=== PATIENT | male | born 1955 | race African-American/Black ===

== ENCOUNTER 2019-06-09 13:43 | Emergency (ER) | payer OTHER ==
[2019-06-09 13:54] VITALS: BP 145/75; PULSE 74; TEMP 97.9; BMI 24.3
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
== END 2019-06-09 17:26 | disposition home or self-care (01) ==
LOC: JERFT 13:43
PROC: 2W3RXYZ Immobilization of Left Lower Leg using Other Device (ICD-10-PCS; principal; 2019-06-09)
DX: S39.82XA Other specified injuries of lower back, initial encounter (principal); S89.82XA Other specified injuries of left lower leg, initial encounter; W03.XXXA Other fall on same level due to collision with another person, initial encounter; Y93.89 Activity, other specified; Y92.118 Other place in children's home and orphanage as the place of occurrence of the external cause; Y99.0 Civilian activity done for income or pay; I12.0 Hypertensive chronic kidney disease with stage 5 chronic kidney disease or end stage renal disease; N18.6 End stage renal disease; N17.8 Other acute kidney failure; Z99.2 Dependence on renal dialysis
CPT/HCPCS: 72100-TC-FY; 73562-TC-LT-FY; 99283-25

== ENCOUNTER 2020-09-05 14:02 | Emergency (ER) | payer OTHER ==
[2020-09-05 14:25] VITALS: BP 128/80; PULSE 99; TEMP 98; BMI 27.3
== END 2020-09-05 15:47 | disposition home or self-care (01) ==
LOC: JER 14:02
DX: T82.838A Hemorrhage due to vascular prosthetic devices, implants and grafts, initial encounter (principal)
CPT/HCPCS: 99282-25

== ENCOUNTER 2022-10-06 10:27 | Observation (INO) | payer OTHER ==
[2022-10-06 12:19] LABS: BASO % 0.5 % (0-2.0); EOS % 3.1 % (0-4.5); HEMATOCRIT 21.8 % (35.4-49); HEMOGLOBIN 7.2 GM/dL (11.7-16.9); LYMPH % 5.4 % (8-40); MCH 32.7 pg (25.7-33.7); MCHC 33.2 g/dl (32.0-35.9); MEAN CELL VOLUME 98.4 fl (80-96); MONO % 7.3 % (3.8-10.2); NEUT % 83.7 % (42.8-82.8); PLATELET COUNT 295 10^3/uL (134-434); RBC 2.22 M/mm3 (4.00-5.60); RDW 14.4 % (11.9-15.9)
[2022-10-06 12:30] LABS: INR 1.19 (0.83-1.09); PROTHROMBIN TIME (PATIENT) 13.8 SEC (9.7-13.0)
[2022-10-06 12:32] LABS: ACTIVATED PTT 29.2 SECONDS (25.2-36.5); POTASSIUM 3.6 mmol/L (3.5-5.1)
[2022-10-06 12:34] LABS: ALBUMIN 2.7 g/dl (3.4-5.0); BLOOD UREA NITROGEN 22.4 mg/dL (7-18); CALCIUM 8.8 mg/dL (8.5-10.1)
[2022-10-06 12:38] LABS: CREATININE 6.1 mg/dL (0.55-1.3)
[2022-10-06 12:39] LABS: BILIRUBIN,TOTAL 0.6 mg/dL (0.2-1); TOT PROT 6.8 g/dl (6.4-8.2)
[2022-10-06] MEDS ORDERED: hydrALAZINE HCL 20 MG/ML VIAL IVPUSH PRN (18:22)
[2022-10-06] MEDS ORDERED: ACETAMINOPHEN 500 MG TABLET (FP) PO PRN (18:56)
[2022-10-06] MEDS ORDERED: hydrALAZINE HCL 20 MG/ML VIAL ONE ×2 (19:00→19:44)
[2022-10-06] MEDS ORDERED: amLODIPine BESYLATE 5 MG TABLET (FP) ONE ×2 (19:00→19:44)
[2022-10-06] MEDS ORDERED: CEFTRIAXONE 1 GM/50 ML BAG ONE ×2 (19:09→19:45)
[2022-10-06] MEDS ORDERED: ACETAMINOPHEN 500 MG TABLET (FP) ONE (19:46)
[2022-10-06] MEDS: amLODIPine BESYLATE 5 MG TABLET (FP) PO SCH (19:56)
[2022-10-06] MEDS: CEFTRIAXONE 1 GM in DEXTROSE 5%-WATER - 50 ML IVPB SCH (19:56)
[2022-10-06] MEDS ORDERED: PATIENT'S OWN MEDICATION (NON-FORMULARY) (Ferric Citrate [Auryxia] 210 MG Tablet) PO SCH (22:00)
[2022-10-07] MEDS ORDERED: CARVEDILOL 6.25 MG TABLET (FP) ONE (01:42)
[2022-10-07] MEDS ORDERED: GABAPENTIN 100 MG CAPSULE ONE (01:42)
[2022-10-07] MEDS: CARVEDILOL 6.25 MG TABLET (FP) PO SCH ×2 (01:45→10:10)
[2022-10-07] MEDS: GABAPENTIN 100 MG CAPSULE PO SCH ×2 (01:46→10:10)
[2022-10-07 04:27] VITALS: BMI 25.4
[2022-10-07] MEDS: amLODIPine BESYLATE 5 MG TABLET (FP) PO SCH (10:10)
[2022-10-07] MEDS: CEFTRIAXONE 1 GM in DEXTROSE 5%-WATER - 50 ML IVPB SCH (10:10)
[2022-10-07 11:55] VITALS: RESP 18
[2022-10-07 12:02] LABS: BASO % 0.9 % (0-2.0); EOS % 2.9 % (0-4.5); HEMATOCRIT 24.6 % (35.4-49); HEMOGLOBIN 8.3 GM/dL (11.7-16.9); LYMPH % 5.3 % (8-40); MCH 32.4 pg (25.7-33.7); MCHC 33.9 g/dl (32.0-35.9); MEAN CELL VOLUME 95.7 fl (80-96); MEAN PLT VOLUME 7.4 fl (7.5-11.1); MONO % 10.4 % (3.8-10.2); NEUT % 80.5 % (42.8-82.8); PLATELET COUNT 292 10^3/uL (134-434); RBC 2.57 M/mm3 (4.00-5.60); RDW 16.4 % (11.9-15.9); WHITE BLOOD COUNT 12.9 K/mm3 (4.0-10.0)
[2022-10-07 12:25] LABS: CHLORIDE 106 mmol/L (98-107); POTASSIUM 4.1 mmol/L (3.5-5.1); SODIUM 143 mmol/L (136-145)
[2022-10-07 12:31] LABS: CALCIUM 8.8 mg/dL (8.5-10.1)
[2022-10-07 12:32] LABS: ANION GAP 13 MMOL/L (8-16); BLOOD UREA NITROGEN 40.5 mg/dL (7-18); CO2 25 mmol/L (21-32); GLUCOSE,RANDOM 86 mg/dL (74-106)
[2022-10-07 15:12] VITALS: BP 164/83; PULSE 90; TEMP 98.5
== END 2022-10-07 16:48 | disposition home or self-care (01) ==
LOC: JER 10:27 → JERBED 14:29 → UNDOADMOB 14:29 → INTOOBSV 15:22 → OBSVTOIN 15:22 → JERBED 18:49 → J8W 10-07 04:00
PROVIDERS: ADMIT Internal Medicine; ATTEND Nurse Practitioner Acute Care
PROC: 30233N1 Transfusion of Nonautologous Red Blood Cells into Peripheral Vein, Percutaneous Approach (ICD-10-PCS; principal; 2022-10-06)
PROC: 3E03329 Introduction of Other Anti-infective into Peripheral Vein, Percutaneous Approach (ICD-10-PCS; 2022-10-06)
PROC: 3E03329 Introduction of Other Anti-infective into Peripheral Vein, Percutaneous Approach (ICD-10-PCS; 2022-10-06)
PROC: 3E033GC Introduction of Other Therapeutic Substance into Peripheral Vein, Percutaneous Approach (ICD-10-PCS; 2022-10-06)
DX: D64.9 Anemia, unspecified (principal); I12.9 Hypertensive chronic kidney disease with stage 1 through stage 4 chronic kidney disease, or unspecified chronic kidney disease; Z76.89 Persons encountering health services in other specified circumstances; Z99.2 Dependence on renal dialysis; N18.9 Chronic kidney disease, unspecified; D86.9 Sarcoidosis, unspecified
CPT/HCPCS: 0241U-QW; 36415; 36430; 71045-TC-FY; 80048; 80053; 82272; 82607; 82728; 82746; 83540; 83550; 85025; 85610; 85730; 86850; 86900; 86901; 86922; 87040; 87186; 93005; 93010; 96365; 96375; 99285-25; G0378; P9038; P9058

== ENCOUNTER 2022-10-27 07:22 | Inpatient (IN) | payer OTHER ==
[2022-10-27 07:28] VITALS: BMI 25.8
[2022-10-27] MEDS ORDERED: VANCOMYCIN 1 GM in D5W (PRE-DOCKED) 1,000 MG/250 ML (RESTRICTED TO ID ONLY IVPB ONE ×2 (07:52→08:59)
[2022-10-27] MEDS ORDERED: FUROSEMIDE 40 MG/4 ML INJECTABLE VIAL IVPUSH ONE (08:22)
[2022-10-27 08:29] LABS: VENOUS BASE EXCESS -1.3 mmol/L (-2-2); VENOUS O2 SATURATION 80.9 % (70-80); VENOUS PCO2 38.5 mmHg (38-52); VENOUS PH 7.401 (7.310-7.410)
[2022-10-27] MEDS ORDERED: FUROSEMIDE 40 MG/4 ML INJECTABLE VIAL ONE (08:29)
[2022-10-27] MEDS ORDERED: CEFEPIME HCL/D5W 1 GM/50 ML BAG IVPB ONE (08:40)
[2022-10-27 08:41] LABS: BASO % 0.4 % (0-2.0); EOS % 1.1 % (0-4.5); LYMPH % 7.2 % (8-40); MCH 31.3 pg (25.7-33.7); MCHC 33.8 g/dl (32.0-35.9); MEAN CELL VOLUME 92.6 fl (80-96); MONO % 8.6 % (3.8-10.2); NEUT % 82.7 % (42.8-82.8); PLATELET COUNT 224 10^3/uL (134-434); RBC 2.16 M/mm3 (4.00-5.60); RDW 16.6 % (11.9-15.9)
[2022-10-27 08:44] LABS: HEMOGLOBIN 6.8 GM/dL (11.7-16.9)
[2022-10-27 08:45] LABS: INR 1.32 (0.83-1.09); PROTHROMBIN TIME (PATIENT) 15.3 SEC (9.7-13.0)
[2022-10-27] MEDS ORDERED: CEFEPIME 1 GM/100 ML BAG IVPB ONE (08:47)
[2022-10-27 08:48] LABS: ACTIVATED PTT 30.5 SECONDS (25.2-36.5)
[2022-10-27 08:52] LABS: CHLORIDE 105 mmol/L (98-107); POTASSIUM 4.2 mmol/L (3.5-5.1); SODIUM 143 mmol/L (136-145)
[2022-10-27 08:54] LABS: CALCIUM 8.6 mg/dL (8.5-10.1)
[2022-10-27 08:55] LABS: ALBUMIN 3.1 g/dl (3.4-5.0); ANION GAP 14 MMOL/L (8-16); BLOOD UREA NITROGEN 70.9 mg/dL (7-18); CO2 23 mmol/L (21-32); GLUCOSE,RANDOM 104 mg/dL (74-106); MAGNESIUM 2.1 mg/dL (1.8-2.4)
[2022-10-27 08:58] LABS: PHOSPHOROUS 4.4 mg/dL (2.5-4.9); SGOT/AST 19 U/L (15-37); SGPT/ALT 20 U/L (13-61)
[2022-10-27 08:59] LABS: BILIRUBIN,TOTAL 0.7 mg/dL (0.2-1); TOT PROT 7.1 g/dl (6.4-8.2)
[2022-10-27 09:01] LABS: ALK PHOS 195 U/L (45-117)
[2022-10-27 09:02] LABS: N-TERMINAL BNP 12331.5 pg/ml (5-125)
[2022-10-27 09:05] LABS: CREATININE 12.4 mg/dL (0.55-1.3)
[2022-10-27] MEDS ORDERED: VANCOMYCIN/WATER FOR INJ (PEG) 1,000 MG/200 ML BAG IVPB ONE (09:36)
[2022-10-27 11:54] LABS: TOTAL IRON BINDING CAPACITY 140 ug/dL (250-450)
[2022-10-27 11:55] LABS: IRON SERUM 62 ug/dL (50-175)
[2022-10-27] MEDS ORDERED: SODIUM CHLORIDE 250 ML IV PRN (18:00)
[2022-10-27] MEDS ORDERED: EPOETIN ALFA-EPBX 10,000 UNIT/ML VIAL SQ ONE (18:00)
[2022-10-27] MEDS ORDERED: DOXYCYCLINE INJECTION 100 MG in DEXTROSE 5%-WATER 100 ML IVPB SCH (22:00)
[2022-10-28 07:52] LABS: BASO % 0.6 % (0-2.0); EOS % 3.9 % (0-4.5); HEMATOCRIT 22.5 % (35.4-49); HEMOGLOBIN 7.7 GM/dL (11.7-16.9); LYMPH % 8.5 % (8-40); MCH 31.8 pg (25.7-33.7); MCHC 34.3 g/dl (32.0-35.9); MEAN CELL VOLUME 92.6 fl (80-96); MEAN PLT VOLUME 7.4 fl (7.5-11.1); MONO % 11.4 % (3.8-10.2); NEUT % 75.6 % (42.8-82.8); PLATELET COUNT 229 10^3/uL (134-434); RBC 2.43 M/mm3 (4.00-5.60); RDW 16.2 % (11.9-15.9)
[2022-10-28] MEDS ORDERED: CEFEPIME 1 GM in DEXTROSE 5%-WATER 100 ML IVPB SCH (09:00)
[2022-10-28 10:32] LABS: CHLORIDE 106 mmol/L (98-107); POTASSIUM 4.2 mmol/L (3.5-5.1); SODIUM 144 mmol/L (136-145)
[2022-10-28 10:33] LABS: CALCIUM 8.8 mg/dL (8.5-10.1)
[2022-10-28 10:34] LABS: ANION GAP 8 MMOL/L (8-16); CO2 30 mmol/L (21-32); GLUCOSE,RANDOM 119 mg/dL (74-106)
[2022-10-28 10:39] LABS: BLOOD UREA NITROGEN 41.9 mg/dL (7-18); CREATININE 7.8 mg/dL (0.55-1.3)
[2022-10-28] MEDS: CARVEDILOL 6.25 MG TABLET (FP) PO SCH ×2 (14:52→21:37)
[2022-10-28] MEDS: amLODIPine BESYLATE 5 MG TABLET (FP) PO SCH (14:52)
[2022-10-28] MEDS ORDERED: VANCOMYCIN 1 GM/200 ML PREMIX BAG (RESTRICTED TO ID ONLY) IVPB ONE (15:15)
[2022-10-28] MEDS: HEPARIN NA (PORCINE) 5,000 UNITS/ML 1ML VIAL SQ SCH (21:37)
[2022-10-29] MEDS: HEPARIN NA (PORCINE) 5,000 UNITS/ML 1ML VIAL SQ SCH ×3 (05:45→21:21)
[2022-10-29 07:32] LABS: BASO % 0.6 % (0-2.0); HEMATOCRIT 22.2 % (35.4-49); HEMOGLOBIN 7.6 GM/dL (11.7-16.9); LYMPH % 8.9 % (8-40); MCH 32.1 pg (25.7-33.7); MEAN CELL VOLUME 94.4 fl (80-96); MEAN PLT VOLUME 7.8 fl (7.5-11.1); MONO % 11.1 % (3.8-10.2); NEUT % 72.4 % (42.8-82.8); PLATELET COUNT 237 10^3/uL (134-434); RBC 2.35 M/mm3 (4.00-5.60); RDW 16.3 % (11.9-15.9); WHITE BLOOD COUNT 10.8 K/mm3 (4.0-10.0)
[2022-10-29 08:01] LABS: CHLORIDE 104 mmol/L (98-107); POTASSIUM 4.7 mmol/L (3.5-5.1); SODIUM 142 mmol/L (136-145)
[2022-10-29 08:11] LABS: ANION GAP 10 MMOL/L (8-16); CALCIUM 8.5 mg/dL (8.5-10.1); CO2 28 mmol/L (21-32)
[2022-10-29 08:12] LABS: BLOOD UREA NITROGEN 58.6 mg/dL (7-18); GLUCOSE,RANDOM 126 mg/dL (74-106)
[2022-10-29 08:15] LABS: PHOSPHOROUS 5.9 mg/dL (2.5-4.9)
[2022-10-29 08:27] LABS: CREATININE 9.8 mg/dL (0.55-1.3)
[2022-10-29] MEDS: amLODIPine BESYLATE 5 MG TABLET (FP) PO SCH (09:16)
[2022-10-29] MEDS: CARVEDILOL 6.25 MG TABLET (FP) PO SCH ×2 (09:16→21:21)
[2022-10-29] MEDS ORDERED: EPOETIN ALFA-EPBX 10,000 UNIT/ML VIAL SQ ONE (10:51)
[2022-10-29] MEDS ORDERED: VANCOMYCIN/WATER FOR INJ (PEG) 1,000 MG/200 ML BAG IVPB ONE (14:00)
[2022-10-30] MEDS: HEPARIN NA (PORCINE) 5,000 UNITS/ML 1ML VIAL SQ SCH ×3 (05:20→21:51)
[2022-10-30] MEDS ORDERED: SODIUM CHLORIDE 250 ML IV PRN (07:35)
[2022-10-30] MEDS ORDERED: EPOETIN ALFA-EPBX 10,000 UNIT, EPOETIN ALFA-EPBX 2,000 UNIT, EPOETIN ALFA-EPBX 3,000 UNIT SQ ONE (08:00)
[2022-10-30 08:08] LABS: BASO % 0.7 % (0-2.0); EOS % 6.3 % (0-4.5); HEMATOCRIT 25.1 % (35.4-49); HEMOGLOBIN 8.1 GM/dL (11.7-16.9); LYMPH % 9.6 % (8-40); MCH 30.9 pg (25.7-33.7); MCHC 32.1 g/dl (32.0-35.9); MEAN CELL VOLUME 96.3 fl (80-96); MEAN PLT VOLUME 7.6 fl (7.5-11.1); MONO % 8.4 % (3.8-10.2); PLATELET COUNT 302 10^3/uL (134-434); RBC 2.61 M/mm3 (4.00-5.60); RDW 15.8 % (11.9-15.9); WHITE BLOOD COUNT 12.3 K/mm3 (4.0-10.0)
[2022-10-30 08:21] LABS: CHLORIDE 101 mmol/L (98-107); POTASSIUM 4.8 mmol/L (3.5-5.1); SODIUM 141 mmol/L (136-145)
[2022-10-30 08:27] LABS: CALCIUM 8.9 mg/dL (8.5-10.1)
[2022-10-30 08:28] LABS: ALBUMIN 2.8 g/dl (3.4-5.0); ANION GAP 16 MMOL/L (8-16); BLOOD UREA NITROGEN 69.2 mg/dL (7-18); CO2 24 mmol/L (21-32); GLUCOSE,RANDOM 98 mg/dL (74-106)
[2022-10-30 08:31] LABS: PHOSPHOROUS 5.8 mg/dL (2.5-4.9); SGOT/AST 15 U/L (15-37); SGPT/ALT 20 U/L (13-61)
[2022-10-30 08:33] LABS: BILIRUBIN,TOTAL 0.5 mg/dL (0.2-1); TOT PROT 6.4 g/dl (6.4-8.2)
[2022-10-30 08:35] LABS: ALK PHOS 184 U/L (45-117)
[2022-10-30 08:36] LABS: CREATININE 11.4 mg/dL (0.55-1.3)
[2022-10-30] MEDS: CARVEDILOL 6.25 MG TABLET (FP) PO SCH (10:17)
[2022-10-30] MEDS: amLODIPine BESYLATE 5 MG TABLET (FP) PO SCH (10:17)
[2022-10-30] MEDS: PIPERACILLIN/TAZOB 2.25 GM 2.25 GM in DEXTROSE 5%-WATER - 50 ML IVPB SCH ×2 (16:13→18:32)
[2022-10-30] MEDS: CARVEDILOL 12.5 MG TABLET (FP) PO SCH (21:49)
[2022-10-31] MEDS: PIPERACILLIN/TAZOB 2.25 GM 2.25 GM in DEXTROSE 5%-WATER - 50 ML IVPB SCH ×3 (01:07→17:33)
[2022-10-31] MEDS: HEPARIN NA (PORCINE) 5,000 UNITS/ML 1ML VIAL SQ SCH ×3 (05:02→21:03)
[2022-10-31 09:32] LABS: BASO % 0.5 % (0-2.0); EOS % 4.2 % (0-4.5); HEMATOCRIT 23.6 % (35.4-49); LYMPH % 9.4 % (8-40); MCH 31.7 pg (25.7-33.7); MCHC 33.9 g/dl (32.0-35.9); MEAN CELL VOLUME 93.5 fl (80-96); MEAN PLT VOLUME 6.8 fl (7.5-11.1); MONO % 8.9 % (3.8-10.2); PLATELET COUNT 294 10^3/uL (134-434); RBC 2.52 M/mm3 (4.00-5.60); WHITE BLOOD COUNT 9.8 K/mm3 (4.0-10.0)
[2022-10-31 09:44] VITALS: RESP 18
[2022-10-31 10:21] LABS: CHLORIDE 100 mmol/L (98-107); POTASSIUM 4.1 mmol/L (3.5-5.1); SODIUM 142 mmol/L (136-145)
[2022-10-31 10:25] LABS: CALCIUM 8.9 mg/dL (8.5-10.1)
[2022-10-31 10:26] LABS: ALBUMIN 2.6 g/dl (3.4-5.0); ANION GAP 11 MMOL/L (8-16); CO2 31 mmol/L (21-32); GLUCOSE,RANDOM 129 mg/dL (74-106); MAGNESIUM 1.8 mg/dL (1.8-2.4)
[2022-10-31 10:29] LABS: PHOSPHOROUS 5.1 mg/dL (2.5-4.9); SGOT/AST 11 U/L (15-37); SGPT/ALT 17 U/L (13-61)
[2022-10-31 10:30] LABS: BILIRUBIN,TOTAL 0.4 mg/dL (0.2-1); TOT PROT 6.2 g/dl (6.4-8.2)
[2022-10-31 10:32] LABS: ALK PHOS 169 U/L (45-117)
[2022-10-31 10:40] LABS: CREATININE 7.7 mg/dL (0.55-1.3)
[2022-10-31] MEDS: CARVEDILOL 12.5 MG TABLET (FP) PO SCH ×2 (10:47→21:03)
[2022-10-31] MEDS: amLODIPine BESYLATE 5 MG TABLET (FP) PO SCH (10:47)
[2022-10-31] MEDS ORDERED: SODIUM CHLORIDE 250 ML IV PRN (14:45)
[2022-11-01] MEDS: PIPERACILLIN/TAZOB 2.25 GM 2.25 GM in DEXTROSE 5%-WATER - 50 ML IVPB SCH ×2 (02:15→12:14)
[2022-11-01] MEDS: HEPARIN NA (PORCINE) 5,000 UNITS/ML 1ML VIAL SQ SCH (06:42)
[2022-11-01 09:10] LABS: HEMATOCRIT 23.5 % (35.4-49); HEMOGLOBIN 7.8 GM/dL (11.7-16.9); MCHC 33.1 g/dl (32.0-35.9); MEAN CELL VOLUME 93.7 fl (80-96); PLATELET COUNT 318 10^3/uL (134-434); RDW 15.8 % (11.9-15.9); WHITE BLOOD COUNT 11.2 K/mm3 (4.0-10.0)
[2022-11-01] MEDS ORDERED: EPOETIN ALFA-EPBX 20,000 UNIT/ML VIAL SQ ONE (09:15)
[2022-11-01 09:43] LABS: CHLORIDE 103 mmol/L (98-107); POTASSIUM 4.3 mmol/L (3.5-5.1); SODIUM 143 mmol/L (136-145)
[2022-11-01 09:58] LABS: BLOOD UREA NITROGEN 51.3 mg/dL (7-18); CALCIUM 8.9 mg/dL (8.5-10.1)
[2022-11-01 09:59] LABS: ALBUMIN 2.5 g/dl (3.4-5.0); ANION GAP 13 MMOL/L (8-16); CO2 27 mmol/L (21-32)
[2022-11-01 10:01] LABS: GLUCOSE,RANDOM 88 mg/dL (74-106); SGPT/ALT 16 U/L (13-61)
[2022-11-01 10:02] LABS: SGOT/AST 14 U/L (15-37)
[2022-11-01 10:03] LABS: BILIRUBIN,TOTAL 0.6 mg/dL (0.2-1); TOT PROT 6.5 g/dl (6.4-8.2)
[2022-11-01 10:04] LABS: ALK PHOS 173 U/L (45-117)
[2022-11-01 10:05] LABS: CREATININE 9.7 mg/dL (0.55-1.3)
[2022-11-01] MEDS: amLODIPine BESYLATE 5 MG TABLET (FP) PO SCH (12:14)
[2022-11-01] MEDS: CARVEDILOL 12.5 MG TABLET (FP) PO SCH (12:14)
[2022-11-01 12:18] VITALS: BP 144/78; PULSE 84; TEMP 99
== END 2022-11-01 15:01 | disposition home or self-care (01) | DRG 871 ==
LOC: JER 07:22 → JERBED 09:48 → J4S 11:57 → J5S 10-30 18:08
PROVIDERS: ADMIT Internal Medicine
PROC: 30233N1 Transfusion of Nonautologous Red Blood Cells into Peripheral Vein, Percutaneous Approach (ICD-10-PCS; principal; 2022-10-27)
PROC: 5A1D70Z Performance of Urinary Filtration, Intermittent, Less than 6 Hours Per Day (ICD-10-PCS; 2022-10-27)
PROC: 5A1D70Z Performance of Urinary Filtration, Intermittent, Less than 6 Hours Per Day (ICD-10-PCS; 2022-10-30)
PROC: 5A1D70Z Performance of Urinary Filtration, Intermittent, Less than 6 Hours Per Day (ICD-10-PCS; 2022-11-01)
DX: R78.81 Bacteremia (principal); J81.0 Acute pulmonary edema; J96.01 Acute respiratory failure with hypoxia; N18.6 End stage renal disease; I12.0 Hypertensive chronic kidney disease with stage 5 chronic kidney disease or end stage renal disease; Z99.2 Dependence on renal dialysis; D63.1 Anemia in chronic kidney disease; D86.9 Sarcoidosis, unspecified; E87.70 Fluid overload, unspecified; E78.5 Hyperlipidemia, unspecified; D50.0 Iron deficiency anemia secondary to blood loss (chronic); B95.7 Other staphylococcus as the cause of diseases classified elsewhere
CPT/HCPCS: 0241U-QW; 36415; 36430; 71045-TC-FY; 76882-TC-RT-FY; 80048; 80053; 82550; 82553; 82607; 82728; 82746; 82803; 83540; 83550; 83605; 83735; 83880; 84100; 84466; 84484; 85025; 85027; 85610; 85730; 86803; 86850; 86900; 86901; 86922; 87040; 87186; 87340; 93005; 93010; 93306-TC; 94660; 99291; G0480; P9058; Q5106